=== PATIENT | female | born 1970 | race Caucasian/White ===

== ENCOUNTER → 2017-11-17 15:39 | Outpatient (CLI) | payer OTHER, SELFPAY ==
[2017-11-17 17:47] LABS: AST(SGOT) 9 U/L (15-37); Alanine Aminotransfer ALT/SGPT 20 U/L (13-56); Albumin, Serum 3.4 g/dL (3.2-5.0); Alkaline Phosphatase 76 U/L (45-117); Bilirubin, Direct 0.09 mg/dL (0.00-0.30); Globulin 4.1 g/dL (2.2-4.2); Lipase 128 U/L (73-393); Protein, Total 7.5 g/dL (6.4-8.2)
== END ==
PROVIDERS: Visit Provider Family Medicine
DX: R10.11 Right upper quadrant pain (principal); R11.2 Nausea with vomiting, unspecified
CPT/HCPCS: 36415; 80076; 83690

== ENCOUNTER 2017-11-19 22:57 | Emergency (ER) | payer OTHER, SELFPAY ==
[2017-11-19 22:59] VITALS: BP 145/98; PULSE 90; RESP 16; TEMP 36.9; O2SAT 98; BMI 22.0
--- NOTE | 2017-11-19 23:29 | US_ITS ---
STUDY: ABDOMINAL ULTRASOUND - RIGHT UPPER QUADRANT REASON FOR VISIT: Female, 47 years old. Right upper quadrant pain. TECHNIQUE: Ultrasound evaluation of the right upper quadrant was performed with real-time and static soto-scale imaging. TECHNICAL QUALITY: Adequate. COMPARISON: None. FINDINGS: Liver: The liver measures 13.4 cm. There is normal echogenicity of the liver. The bile ducts are within normal limits. There is hepatic color flow. The direction of portal flow is hepatopetal. There is no demonstrated mass lesion. Gallbladder: Normal distended gallbladder. The gallbladder wall measures 3 mm. There is a negative sonographic Richardson's sign. There is no pericholecystic fluid. There are multiple gallstones, the largest is in the region of the neck of the gallbladder measuring about 1.5 cm. Common Bile Duct (C.B.D.): The common bile duct measures 6 mm. Pancreas: Normal size of the head, body and tail of the pancreas. There is normal echogenicity of the pancreas. There is no demonstrated pancreatic mass or cyst. Right Kidney: Normal size of the right kidney. The right kidney measures 10 x 5 x 4.3 cm. Normal renal cortex. The right cortex measures 1.1 cm. There is no demonstrated renal mass or cyst. There is no right hydronephrosis. US/Gallbladder IMPRESSION: Multiple gallstones as described above. Electronically Signed: Sudhakar Lacy MD at 0:39 EST Tel , Service support ,
[2017-11-19] MEDS: Ketorolac 30 MG/ML Syringe IV (23:41)
[2017-11-19] MEDS: Ondansetron 4 MG/2 ML Vial IV (23:41)
[2017-11-19 23:46] LABS: Absolute Lymphocyte Count 2.22 X10^3/ul (0.83-4.51); Absolute Neutrophil Count 6.3 X10^3/uL (2.0-7.7); Basophil# 0.05 X10^3/uL; Basophil% 0.5 % (0-1); Eosinophil# 0.25 X10^3/uL; Eosinophils% 2.6 % (0-5); Hematocrit 40.2 % (37-47); Hemoglobin 13.8 g/dl (12.0-15.0); Lymphocyte # 2.22 X10^3/ul (4.0); Lymphocyte % 22.8 % (19-41); Mean Corp Hgb Conc 34.3 g/gl (32-36); Mean Corpuscular Hgb 31.6 pg (27.0-32.0); Mean Platelet Vol. 9.9 fl (6.2-12.0); Monocyte% 9.2 % (0-10); Neutrophil # 6.32 X10^3/uL (2.7-7.7); Neutrophil % 64.8 % (47-70); Platelet Count 239 K/mm3 (150-450); RBC Distribution Width CV 13.5 % (11.6-14.6); RBC Distribution Width SD 44.7 fl (35.1-43.9); Red Blood Count 4.37 M/mm3 (4.2-5.4); White Blood Count 9.8 K/mm3 (4.4-11.0)
[2017-11-19 23:47] LABS: POSITIVE COUNT NO; POSITIVE DIFFERENTIAL NO; POSITIVE MORPHOLOGY NO
[2017-11-19 23:57] LABS: ALB/GLOB Ratio 0.9 RATIO (0.9-2.4); AST(SGOT) 11 U/L (15-37); Alanine Aminotransfer ALT/SGPT 16 U/L (13-56); Albumin, Serum 3.4 g/dL (3.2-5.0); Alkaline Phosphatase 73 U/L (45-117); Anion Gap 9 (5-15); BUN 10 mg/dL (7-18); BUN/Creat Ratio 14.2 RATIO (10-20); Calcium,Total 8.8 mg/dL (8.5-10.1); Chloride 107 mmol/L (98-107); EST Glomerular Filtration Rate 94 mL/min (>60); Est Glom Filt Rate - Afr Amer 114 mL/min (>60); Estimated Creatinine Clearance 95.58 ml/min; Globulin 3.9 g/dL (2.2-4.2); Glucose 99 mg/dL (74-106); Lipase 141 U/L (73-393); Potassium 3.6 mmol/L (3.5-5.1); Protein, Total 7.3 g/dL (6.4-8.2); Sodium Level 144 mmol/L (136-145)
[2017-11-20 01:13] VITALS: BP 143/95; PULSE 83; RESP 16; O2SAT 100
--- NOTE | 2017-11-20 01:31 | ED.VISSUMM ---
- ER Visit Summary Date of Service: 11/20/17 Chief Complaint: Abdominal pain History of Present Illness: The patient is a 47 F with intermittent right upper quadrant pain for the past week that has been more severe in severity and more persistent tonight, 3 or 4 hours. Has been occurring 1-2 hours after meals, tonight she drank some milk to see if it would make it better and it actually became worse. She has had associated nausea and vomiting. No hematemesis, hematochezia, or melena. No fevers. Pain does radiate to her right mid back when it occurs. It is colicky. Saw her doctor and had some labs done and has some type of imaging test scheduled coming up. No prior abdominal surgeries. Physical Examination: No acute distress. Vitals are unremarkable. Tender with voluntary guarding in the right upper quadrant, no rebound tenderness, abdomen is soft with normal bowel sounds present and there is no other areas of tenderness. No CVA tenderness. Lungs are clear, heart is regular without tachycardia. Test Results: CBC, chemistries, liver enzymes, and lipase are all within normal limits. Ultrasound of the gallbladder shows gallstones with the largest being 1.5 cm in the neck of the gallbladder, no signs of cholecystitis or pericholecystic fluid. Common bile duct is 6 mm, within normal limits. Emergency Department Course and Treatment: Patient was treated with IV Toradol and Zofran. On reevaluation she is feeling much better her pain is resolved. Consistent with calculus biliary colic, she does not have acute cholecystitis and is in no need of urgency admission. We discussed a no fat diet, and surgical follow-up. We also discussed reasons to return to the ER, and given that she is a reasonable patient she was prescribed [place] and Zofran to use as needed at home in case she gets recurrent pain. All questions answered at bedside she is comfortable with this plan. Treatment Plan: Avoid fats in diet, surgical follow-up Disposition: Discharge home Impression: Acute biliary colic Cholelithiasis This note was generated with [employer] dictation software. It may contain incorrect words, spelling, and punctuation that were not noted in review of the chart prior to signing ED Disposition - Plan for ED Patient: Disposition: Home or Assisted Living Chief Complaint: Abd Pain Instructions: Treating Gallstones, Cholecystectomy, What are Gallstones? Prescriptions: Hydrocodone Bitart/Apap 5-325 [[place] 5/325] 1 - 2 tab PO Q4H PRN PRN 2 Days #12 tab PRN Reason: Pain Ondansetron [Zofran] 8 mg PO Q8H PRN PRN #12 tab PRN Reason: Nausea Referrals: Pio Bennett MD [Primary Care Provider] - Justin Jay MD [STAFF PHYSICIAN] - As soon as possible
[2017-11-20 01:38] VITALS: BP 146/96; PULSE 77; RESP 18; O2SAT 96
== END 2017-11-20 01:39 | disposition home or self-care (01) ==
PROVIDERS: Emergency Provider Emergency Medicine; Family Provider Family Medicine; PCP Family Medicine
DX: K80.50 Calculus of bile duct without cholangitis or cholecystitis without obstruction (principal)
CPT/HCPCS: 76705; 80053; 83690; 85025; 96374; 96375; 99283; A4216; J2405

== ENCOUNTER 2017-11-21 05:47 | Day surgery (SDC) | payer OTHER, SELFPAY ==
[2017-11-20 12:34] VITALS: BP 131/90
[2017-11-20 12:35] VITALS: BMI 22.0
[2017-11-21] VITALS (9 sets, daily range): BP systolic 131–161; BP diastolic 86–96; PULSE 62–86; RESP 10–20; TEMP 36.4–36.6; O2SAT 95–100; BMI 22.2
--- NOTE | 2017-11-21 05:59 | EKG12_ITS ---
Test Reason : PREOP Blood Pressure : / mmHG Vent. Rate : 084 BPM Atrial Rate : 084 BPM P-R Int : 146 ms QRS Dur : 096 ms QT Int : 388 ms P-R-T Axes : 066 067 067 degrees QTc Int : 458 ms Normal sinus rhythm Incomplete right bundle branch block Confirmed by JOSESITO MONTES DE OCA, CLAIRE ([id number]), graphic editor AMARI SANDHU ([id number]) on 11/24/2017 2:20:26 PM Referred By: Justin Jay Confirmed By:CLAIRE BELLAMY MD
--- NOTE | 2017-11-21 07:13 | RAD_ITS ---
STUDY: INTRAOPERATIVE CHOLANGIOGRAM. REASON FOR EXAM: Female, 47 years old. Laparoscopic cholecystectomy. FLUOROSCOPY TIME (if supplied): (12.9 seconds) minutes/seconds TECHNIQUE: An intraoperative cholangiogram was performed by the surgeon. Imaging was submitted. COMPARISON: None. FINDINGS: The common bile duct is not dilated. The visualized intrahepatic biliary ducts are unremarkable. No filling defect is seen. There is free flow of contrast into the duodenum. RAD/Cholangiogram/ O R,Initial IMPRESSION: Unremarkable intraoperative cholangiogram. Electronically Signed: Jg Traore MD at 11:28 EST Tel [phone], Service support ,
--- NOTE | 2017-11-21 07:30 | GALL_PTH ---
PATIENT: KODAK BUSH LOC: [facility] [place] U#:[id number] AGE/SX: 47/F ROOM: RE11/21/[address]: Dr. Justin Jay MD : 1970 BED: DIS: 11/21/2017 SPEC #: [id number] RECD: 11/21/17 10:11 STATUS: MICHAEL ЕКАТЕРИНА #: [id number] SARAH BETH: 11/21/17 07:[address]: Justin Jay DEPT: SURGICAL PATHOLOGY RECD BY: Patricio Brown ENTERED: 11/21/17 12:08 SP TYPE: MARCIA CHIN DR: Dr. Pio Bennett MD Tissues: Gallbladder, NOS Procedures: Surgery Specimen Level III HEADER OPERATION: Laparoscopic cholecystectomy with IOC PRE-OP DIAGNOSIS: Acute cholecystitis TISSUE SUBMITTED: Gallbladder MICROSCOPIC DIAGNOSIS Gallbladder, cholecystectomy: Acute and chronic cholecystitis and cholelithiasis. AM:todd 11/24/17 MICROSCOPIC DESCRIPTION Slides are reviewed. GROSS DESCRIPTION Received is one container labeled with the patient's name and designated gallbladder. The specimen consists of a gallbladder measuring 9 x 3 x 3 cm. The external surface is smooth and glistening. Focally, it is granular, hemorrhagic and contains cautery artifact. The lumen of the gallbladder contains greenish mucoid bile and a single dark rosario calculus measuring 1.5 x 1 x 1 cm. The mucosa is bile-stained and without any mass lesions. The gallbladder wall averages 0.3 cm in thickness and is free of mass lesions. Maintenance Assistant sections of the gallbladder and the cystic duct are submitted in one cassette. / AM:todd 11/21/17 TC:2 CPT: 67522
[2017-11-21] MEDS: Bupivacaine 0.25% 30 ML Vial (08:09)
--- NOTE | 2017-11-21 08:13 | PCM.DC.GB ---
Discharge Diet: Light diet - advance as tolerated Discharge Activity: Return to Normal Activity, May Not Drive - for 2-3 days or while taking narcotic pain medicataions., - - Do not drive, work heavy equipment or sign legal documents for 24 hours. May shower in (days): 1 - with the bandage in place. Lifting Restrictions: 20 lbs for 2 weeks Additional Activity Instructions:: Pain medication may cause nausea. You should typically eat light foods as you take your pain medications. Pain medication may also cause constipation. If this is a problem for you, please discuss with your doctor. Call your doctor if your incision/area has: Continuous Slow Oozing, Sudden Increased Bleeding, Increased Pain/ Swelling, Increased Redness, Foul Smelling Discharge, Fever of 101 or Higher Call your doctor if you observe: Fever of 101 or Higher Suture Line Care: Avoid Pulling/Pushing, Avoid Pinching/Bending Additional Dressing/Incision Instructions:: Leave operative bandaids on for 2 days. When you remove dressing, leave Steri-Strips on until your follow-up appointment, or until the Steri-Strips fall off on their own. Allergies/Adverse Reactions: Allergies Sulfa (Sulfonamide Antibiotics) Allergy (Verified 11/20/17 14:35) Other Medications to take at Discharge Estradiol 0.5 mg PO DAILY 11/19/17 Estrogens, Conjugated [Premarin] 1 dose VAGINAL DAILY 11/19/17 Multivitamins,Therapeutic [Multivitamin] 1 tab PO DAILY 11/19/17 Hydrocodone Bitart/Apap 5-325 [[place] 5/325] 1 - 2 tab PO Q4H PRN PRN 2 Days #12 tab 11/20/17 Ondansetron [Zofran] 8 mg PO Q8H PRN PRN #12 tab 11/20/17 amoxicillin 875 mg-potassium clavulanate 125 mg tablet 1 tab PO ONCE #1 tab 11/20/17 Oxycodone HCl/Acetaminophen [Percocet 5/325] 1 - 2 tablet PO Q4H PRN PRN 7 Days #30 tablet 11/21/17 The following prescriptions were given: Oxycodone HCl/Acetaminophen [Percocet 5/325] 1 - 2 tablet PO Q4H PRN PRN 7 Days #30 tablet PRN Reason: Pain Primary Care Physician: Pio Bennett MD [Primary Care Provider] - Please Follow Up With: Justin Jay MD When: call tomorrow to make 2 week follow up appt [phone]
--- NOTE | 2017-11-21 08:15 | OP.PCM_ITS ---
Problem List (1) Biliary colic Status: Acute Report of Operation Date of Procedure: 11/21/17 Pre-Operative Diagnosis: Biliary colic and cholelithiasis Post-Operative Diagnosis: Same Surgery/Procedure Performed:: Laparoscopic cholecystectomy with cholangiogram Specimen's removed: Gallbladder and contents Description of Procedure: After obtaining informed consent patient was brought back to the operating room. General anesthesia was induced. The abdomen was prepped and draped in usual sterile fashion. A small midline incision was made superior to the umbilicus and deepened to the level of fascia. The fascia was elevated and incised. Next the peritoneum was elevated and incised in the same fashion. Finger sweep was performed and the Blunt trocar was placed into the abdomen. The balloon was inflated. The abdomen was inflated to 15 mmHg. Next a camera was introduced into the abdomen and the abdomen was inspected. Next under direct visualization three 5-mm ports were placed one subxiphoid and 2 subcostal. Next the gallbladder was elevated and retracted toward the right shoulder. The peritoneum was stripped from the gallbladder. The infundibulum was located and retracted laterally. Next the triangle of Calot was dissected and the cystic duct and cystic artery were identified. Cholangiograms were performed. The Singleton catheter was used to clamp across the infundibulum and the needle was inserted into the gallbladder. Under fluoroscopy contrast was instilled into the gallbladder and the common duct, cystic duct as well as proximal hepatic ducts were identified. There was good filling of the duodenum. There were no filling defects noted in the common bile duct. The clamp was removed as well as the needle and the infundibulum was grasped once more. Three hemolock clips were placed across the cystic duct. The cystic duct was then divided leaving 2 clips on the stump. The cystic artery was clipped and divided in the same fashion. The hook cautery was then used to take the gallbladder off of the gallbladder bed. Hemostasis was obtained. Gallbladder fossa was irrigated and no active bleeding or bile leakage was noted. Next the camera switched to a 5 mm camera and introduced in the subxiphoid port. An Endopouch bag was placed through the umbilical port and the gallbladder was placed into it. The gallbladder was then removed through the umbilical incision. The camera was then reinserted through the umbilical port. The gallbladder fossa was inspected once more and noted to be hemostatic with no leaking bile. The abdomen was suctioned dry the 5 mm ports were removed under direct visualization. The umbilical port was then removed and the air was removed from the abdomen. Next using an 0 Vicryl suture the umbilical fascia was closed in a [id number] fashion. The umbilical port site was irrigated local anesthetic was administered to all the incisions. All the incisions were closed subcuticular 4-0 Monocryl sutures followed by Steri- Strips and dressings. The patient was awoken and taken to PACU in stable condition. - Admit VTE Documentation VTE Mechan Device Prophylaxis: SCD's
--- NOTE | 2017-11-21 10:03 | SUR.PHASEI ---
DR. PALUMBO NOTIFIED OF PT UMBILLICAL DRESSING SATURATED WITH RED DRAINAGE. HE ORDERED FOR DRESSING TO BE CHANGED.
[2017-11-21] MEDS: oxyCODONE 5 MG Tablet PO (10:15)
== END 2017-11-21 11:20 | disposition home or self-care (01) ==
LOC: SDC 05:48 → AC 05:49
PROVIDERS: Family Provider Family Medicine; PCP Family Medicine; Visit Provider Surgery
PROC: (CPT 47610; principal; 2017-11-21 07:10)
DX: K80.12 Calculus of gallbladder with acute and chronic cholecystitis without obstruction (principal); F17.200 Nicotine dependence, unspecified, uncomplicated; Z90.710 Acquired absence of both cervix and uterus; Z79.899 Other long term (current) drug therapy
CPT/HCPCS: 00790; 47563; 74300; 76000; 88304; 93005; J7120; J2405

== ENCOUNTER → 2018-07-23 11:04 | Outpatient (CLI) | payer OTHER, SELFPAY ==
[2018-07-23 13:20] LABS: Estradiol 24.2 pg/mL
== END ==
PROVIDERS: Visit Provider Obstetrics & Gynecology
DX: Z78.0 Asymptomatic menopausal state (principal)
CPT/HCPCS: 36415; 82670; 84144; 84403

== ENCOUNTER → 2019-07-19 11:09 | Outpatient (CLI) | payer OTHER, SELFPAY ==
[2017-11-21 06:08] VITALS: BMI 22.2
[2019-07-19 15:31] LABS: Vitamin D,25 Hydroxy 27.6 ng/mL (29.95-100.01)
[2019-07-19 15:32] LABS: PTHIN 21.9 pg/mL (18.4-80.1)
[2019-07-19 15:37] LABS: Anion Gap 7 (5-15); BUN 10 mg/dL (7-18); BUN/Creat Ratio 13.9 RATIO (10-20); Chloride 108 mmol/L (98-107); Creatinine, Serum 0.72 mg/dL (0.55-1.02); EST Glomerular Filtration Rate 92 mL/min (>60); Est Glom Filt Rate - Afr Amer 111 mL/min (>60); Glucose 82 mg/dL (74-106); Potassium 3.7 mmol/L (3.5-5.1); Sodium Level 142 mmol/L (136-145); T4 Free Direct 1.04 ng/dL (0.76-1.46); Thyroid Stim Hormone (TSH) 1.66 uIU/mL (0.358-3.74)
== END ==
PROVIDERS: Visit Provider Family Medicine
DX: F41.9 Anxiety disorder, unspecified (principal); M85.80 Other specified disorders of bone density and structure, unspecified site; M81.8 Other osteoporosis without current pathological fracture
CPT/HCPCS: 36415; 80048; 82306; 83970; 84439; 84443

== ENCOUNTER → 2019-08-16 11:28 | Outpatient (CLI) | payer OTHER, SELFPAY ==
[2017-11-21 06:08] VITALS: BMI 22.2
[2019-08-16 15:36] LABS: Anion Gap 7 (5-15); BUN 8 mg/dL (7-18); BUN/Creat Ratio 9.9 RATIO (10-20); Calcium,Total 9.1 mg/dL (8.5-10.1); Chloride 105 mmol/L (98-107); Creatinine, Serum 0.81 mg/dL (0.55-1.02); EST Glomerular Filtration Rate 80 mL/min (>60); Est Glom Filt Rate - Afr Amer 97 mL/min (>60); Glucose 111 mg/dL (74-106); Potassium 3.5 mmol/L (3.5-5.1); Sodium Level 140 mmol/L (136-145)
== END ==
LOC: LAB.FUTURE 02-17 00:16 → BFHLAB 04-10 11:38
PROVIDERS: Family Provider Family Medicine; PCP Family Medicine; Visit Provider Family Medicine
DX: R00.9 Unspecified abnormalities of heart beat (principal); R03.0 Elevated blood-pressure reading, without diagnosis of hypertension
CPT/HCPCS: 36415; 80048

== ENCOUNTER → 2020-02-22 09:10 | Outpatient (CLI) | payer OTHER, SELFPAY ==
[2017-11-21 06:08] VITALS: BMI 22.2
[2020-02-22 12:24] LABS: Anion Gap 8 (5-15); BUN 11 mg/dL (7-18); BUN/Creat Ratio 14.4 RATIO (10-20); Calcium,Total 9.6 mg/dL (8.5-10.1); Chloride 103 mmol/L (98-107); Cholesterol 199 mg/dL (200); Creatinine, Serum 0.76 mg/dL (0.55-1.02); EST Glomerular Filtration Rate 85 mL/min (>60); Est Glom Filt Rate - Afr Amer 103 mL/min (>60); Glucose 95 mg/dL (74-106); High Density Lipoprotein 59 mg/dL; Potassium 3.9 mmol/L (3.5-5.1); Sodium Level 138 mmol/L (136-145); Triglycerides 93 mg/dL; Very Low Density Lipoprotein 19 mg/dL (5-40); Vitamin D,25 Hydroxy 33.1 ng/mL
== END ==
PROVIDERS: PCP Family Medicine; Visit Provider Family Medicine
DX: I10 Essential (primary) hypertension (principal); E55.9 Vitamin D deficiency, unspecified; M85.80 Other specified disorders of bone density and structure, unspecified site
CPT/HCPCS: 36415; 80048; 80061; 82306

== ENCOUNTER → 2020-04-11 11:20 | Outpatient (CLI) | payer OTHER, SELFPAY ==
[2017-11-21 06:08] VITALS: BMI 22.2
[2020-04-12 07:20] LABS: SARS-COV-2 TOTAL ABS Nonreactive (Nonreactive)
== END ==
PROVIDERS: PCP Family Medicine; Referring Provider Family Medicine; Visit Provider Family Medicine
DX: Z20.828 Contact with and (suspected) exposure to other viral communicable diseases (principal)
CPT/HCPCS: 86769; G2023

== ENCOUNTER → 2020-10-20 13:19 | Outpatient (CLI) | payer BC, SELFPAY ==
[2017-11-21 06:08] VITALS: BMI 22.2
== END ==
PROVIDERS: PCP Family Medicine; Visit Provider Family Medicine
DX: R35.0 Frequency of micturition (principal); R30.0 Dysuria
CPT/HCPCS: 87077; 87086; 87088; 87186

== ENCOUNTER 2020-12-28 15:11 | Outpatient (RCR) | payer BC, SELFPAY ==
[2017-11-21 06:08] VITALS: BMI 22.2
[2020-12-28] MEDS: COVID-19 VACC, MRNA(PFIZER)/PF 30 MCG/0.3 ML SYRINGE IM (07:42)
[2021-01-18] MEDS: COVID-19 VACC, MRNA(PFIZER)/PF 30 MCG/0.3 ML SYRINGE IM (07:40)
== END 2020-12-28 23:59 ==
LOC: IMMUN 15:11
PROVIDERS: PCP Family Medicine; Visit Provider Family Medicine
DX: Z23 Encounter for immunization (principal)
CPT/HCPCS: 0001A; 0002A; 91300

== ENCOUNTER → 2021-01-22 08:27 | Outpatient (CLI) | payer BC, SELFPAY ==
[2017-11-21 06:08] VITALS: BMI 22.2
[2021-01-22 10:44] LABS: Anion Gap 4 (5-15); BUN 9 mg/dL (7-18); BUN/Creat Ratio 12.2 RATIO (10-20); Calcium,Total 9.2 mg/dL (8.5-10.1); Chloride 107 mmol/L (98-107); Creatinine, Serum 0.74 mg/dL (0.55-1.02); EST Glomerular Filtration Rate 88 mL/min (>60); Est Glom Filt Rate - Afr Amer 106 mL/min (>60); Glucose 97 mg/dL (74-106); Potassium 3.7 mmol/L (3.5-5.1); Sodium Level 138 mmol/L (136-145)
[2021-01-22 10:47] LABS: Vitamin D,25 Hydroxy 58.4 ng/mL
== END ==
PROVIDERS: PCP Family Medicine; Referring Provider Family Medicine; Visit Provider Family Medicine
DX: I10 Essential (primary) hypertension (principal); E55.9 Vitamin D deficiency, unspecified
CPT/HCPCS: 36415; 80048; 82306

== ENCOUNTER → 2022-04-02 | Outpatient (CLI) | payer BC, SELFPAY ==
[2022-04-02 12:33] LABS: Absolute Lymphocyte Count 2.54 X10^3/uL (0.83-4.51); Basophil# 0.05 X10^3/uL; Basophil% 0.8 % (0-1); Eosinophil# 0.32 X10^3/uL; Eosinophils% 4.9 % (0-5); Hematocrit 40.3 % (37-47); Hemoglobin 13.5 g/dL (12.0-15.0); Lymphocyte # 2.54 X10^3/ul (0.83-4.51); Mean Corp Hgb Conc 33.5 g/dL (32-36); Mean Corpuscular Hgb 31.8 pg (27.0-32.0); Mean Corpuscular Volume 94.8 fL (81-99); Mean Platelet Vol. 9.9 fl (6.2-12.0); Monocyte% 9.2 % (0-10); NRBC Flagged by Analyzer 0 % (0-5); Neutrophil % 45.9 % (47-70); Platelet Count 247 K/mm3 (150-450); RBC Distribution Width SD 45.1 fl (35.1-43.9); Red Blood Count 4.25 M/mm3 (4.2-5.4); White Blood Count 6.5 K/mm3 (4.4-11.0)
[2022-04-02 13:07] LABS: Anion Gap 6 (5-15); BUN 10 mg/dL (7-18); BUN/Creat Ratio 13.1 RATIO (10-20); Calcium,Total 9.1 mg/dL (8.5-10.1); Chloride 106 mmol/L (98-107); Creatinine, Serum 0.77 mg/dL (0.55-1.02); EST Glomerular Filtration Rate 84 mL/min (>60); Est Glom Filt Rate - Afr Amer 102 mL/min (>60); Glucose 137 mg/dL (74-106); Potassium 3.9 mmol/L (3.5-5.1); Sodium Level 139 mmol/L (136-145)
[2022-04-02 13:08] LABS: Vitamin D,25 Hydroxy 55.4 ng/mL
== END | disposition home or self-care (01) ==
LOC: LAB 11:48
PROVIDERS: PCP Family Medicine; Referring Provider Family Medicine; Visit Provider Family Medicine
DX: I10 Essential (primary) hypertension (principal); E55.9 Vitamin D deficiency, unspecified
CPT/HCPCS: 36415; 80048; 82306; 85025

== ENCOUNTER → 2023-03-03 | Outpatient (CLI) | payer BC, SELFPAY ==
[2023-03-03 08:25] LABS: Absolute Lymphocyte Count 2.79 X10^3/uL (0.83-4.51); Basophil# 0.06 X10^3/uL; Basophil% 0.8 % (0-1); Eosinophil# 0.27 X10^3/uL; Eosinophils% 3.4 % (0-5); Hematocrit 43.5 % (37-47); Hemoglobin 14.7 g/dL (12.0-15.0); Lymphocyte # 2.79 X10^3/ul (0.83-4.51); Lymphocyte % 35.1 % (19-41); Mean Corp Hgb Conc 33.8 g/dL (32-36); Mean Corpuscular Hgb 32.4 pg (27.0-32.0); Mean Corpuscular Volume 95.8 fL (81-99); Mean Platelet Vol. 10.5 fl (6.2-12.0); Monocyte# 0.82 X10^3/uL; Monocyte% 10.3 % (0-10); NRBC Flagged by Analyzer 0 % (0-5); Neutrophil # 3.99 X10^3/uL (2.7-7.7); Neutrophil % 50.1 % (47-70); Platelet Count 260 K/mm3 (150-450); RBC Distribution Width CV 13.2 % (11.6-14.6); RBC Distribution Width SD 47.2 fl (35.1-43.9); Red Blood Count 4.54 M/mm3 (4.2-5.4)
[2023-03-03 08:58] LABS: ALB/GLOB Ratio 0.9 RATIO (0.9-2.4); AST(SGOT) 19 U/L (15-37); Alanine Aminotransfer ALT/SGPT 20 U/L (13-56); Albumin, Serum 3.5 g/dL (3.2-5.0); Alkaline Phosphatase 100 U/L (45-117); Anion Gap 10 (5-15); BUN 12 mg/dL (7-18); BUN/Creat Ratio 15.8 RATIO (10-20); Calcium,Total 9.2 mg/dL (8.5-10.1); Chloride 106 mmol/L (98-107); Cholesterol 195 mg/dL (200); Creatinine, Serum 0.76 mg/dL (0.55-1.02); EST Glomerular Filtration Rate 85 mL/min (>60); Est Glom Filt Rate - Afr Amer 103 mL/min (>60); Globulin 3.8 g/dL (2.2-4.2); Glucose 89 mg/dL (74-106); High Density Lipoprotein 59 mg/dL; Potassium 3.8 mmol/L (3.5-5.1); Protein, Total 7.3 g/dL (6.4-8.2); Sodium Level 143 mmol/L (136-145); Triglycerides 63 mg/dL; Very Low Density Lipoprotein 13 mg/dL (5-40)
[2023-03-03 09:00] LABS: Vitamin D,25 Hydroxy 66.7 ng/mL
== END | disposition home or self-care (01) ==
LOC: LAB 06:13
PROVIDERS: PCP Nurse Practitioner Family; Referring Provider Nurse Practitioner Family; Visit Provider Nurse Practitioner Family
DX: Z00.00 Encounter for general adult medical examination without abnormal findings (principal); I10 Essential (primary) hypertension; E55.9 Vitamin D deficiency, unspecified
CPT/HCPCS: 36415; 80053; 80061; 82306; 85025

== ENCOUNTER → 2024-03-11 | Outpatient (CLI) | payer BC, SELFPAY ==
[2024-03-11 06:54] LABS: Absolute Neutrophil Count 4.4 X10^3/uL (2.0-7.7); Basophil# 0.07 X10^3/uL; Basophil% 0.9 % (0-1); Eosinophil# 0.44 X10^3/uL; Eosinophils% 5.5 % (0-5); Hematocrit 45.8 % (37-47); Hemoglobin 14.9 g/dL (12.0-15.0); Lymphocyte % 28.8 % (19-41); Mean Corp Hgb Conc 32.5 g/dL (32-36); Mean Corpuscular Hgb 31.5 pg (27.0-32.0); Mean Corpuscular Volume 96.8 fL (81-99); Mean Platelet Vol. 10.2 fl (6.2-12.0); Monocyte# 0.81 X10^3/uL; Monocyte% 10.2 % (0-10); NRBC Flagged by Analyzer 0 % (0-5); Neutrophil # 4.35 X10^3/uL (2.7-7.7); Neutrophil % 54.5 % (47-70); Platelet Count 285 K/mm3 (150-450); RBC Distribution Width CV 12.9 % (11.6-14.6); RBC Distribution Width SD 46.5 fl (35.1-43.9); Red Blood Count 4.73 M/mm3 (4.2-5.4)
[2024-03-11 07:42] LABS: ALB/GLOB Ratio 0.9 RATIO (0.9-2.4); AST(SGOT) 17 U/L (15-37); Alanine Aminotransfer ALT/SGPT 21 U/L (13-56); Albumin, Serum 3.6 g/dL (3.2-5.0); Alkaline Phosphatase 99 U/L (45-117); Anion Gap 5 (5-15); BUN 9 mg/dL (7-18); BUN/Creat Ratio 11.4 RATIO (10-20); Calcium,Total 9.3 mg/dL (8.5-10.1); Chloride 108 mmol/L (98-107); Cholesterol 180 mg/dL (200); Creatinine, Serum 0.79 mg/dL (0.55-1.02); EST Glomerular Filtration Rate 81 mL/min (>60); Est Glom Filt Rate - Afr Amer 98 mL/min (>60); Globulin 3.8 g/dL (2.2-4.2); Glucose 104 mg/dL (74-106); High Density Lipoprotein 49 mg/dL; Potassium 4.3 mmol/L (3.5-5.1); Protein, Total 7.4 g/dL (6.4-8.2); Sodium Level 139 mmol/L (136-145); Triglycerides 120 mg/dL; Very Low Density Lipoprotein 24 mg/dL (5-40)
== END | disposition home or self-care (01) ==
LOC: LAB 06:04
PROVIDERS: PCP Nurse Practitioner Family; Referring Provider Nurse Practitioner Family; Visit Provider Nurse Practitioner Family
DX: Z00.01 Encounter for general adult medical examination with abnormal findings (principal); I10 Essential (primary) hypertension; E55.9 Vitamin D deficiency, unspecified
CPT/HCPCS: 36415; 80053; 80061; 82306; 85025

== ENCOUNTER → 2025-03-19 | Outpatient (CLI) | payer BC, SELFPAY ==
--- OUTSIDE RECORDS SUMMARY | 2025-03-19 07:09 | XMS RPT_ITS | CCD ---
Author Organization [facility] Care Team Providers Care [employer] Room Service Supervisor Name Role Phone Prashant Krishnan Unavailable Unavailable [place], [place] Primary Care Unavailable [place], [place] Referring Unavailable [place], [place] Attending Unavailable [place], [place] Primary Care Unavailable Ld SECURITY FLEX UTILITY OFFICER, Kristina Attending Unavailable [place], [place] Primary Care Unavailable Ld SECURITY FLEX UTILITY OFFICER, Kristina Referring Unavailable Ld SECURITY FLEX UTILITY OFFICER, Kristina Attending Unavailable Allergies Allergy Classification Reported Allergen(s) Allergy Type Date of Onset Reaction(s) Facility (1 source) Sulfonamides (Antibiotic) Allergy to substance 8 Other [facility] (1 source) Sulfonamides (Antibiotic) Drug allergy (disorder) 8 [facility] Repository Medications Current Medications Medication Drug Class(es) Dates Sig (Normalized) Sig (Original) acetaminophen 325 mg / HYDROcodone bitartrate 5 mg oral tablet (1 source) Opioid Agonist Start: 11-20-2017 take 1 tablet by mouth every four hours as needed Hydrocodone-Acetam inophen Active 1 - 2 TABLET PO EVERY 4 HOURS NEEDED 12 2 November 20, 2017 1:00am amoxicillin 875 mg / clavulanate 125 mg oral tablet (1 source) Penicillin-class Antibacterial Start: 11-20-2017 take 1 tablet by mouth once in the evening Amoxicillin-Pot Clavulanate (Augmentin) 875-125 mg tablet Active 1 TABLET PO ONCE 1 November 20, 2017 1:00am take at 6 pm estradiol 0.5 mg oral tablet (1 source) Estrogen Start: 11-19-2017 take 0.5 mg by mouth once daily Estradiol Active 0.5 MG PO DAILY November 19, 2017 1:00am estrogens, conjugated (intermediate) 0.625 mg/ml vaginal cream (1 source) Estrogen Start: 11-19-2017 Conjugated Estrogens Active 1 DOSE VAGINAL DAILY November 19, 2017 1:00am Multivitamin With Folic Acid (1 source) Start: 11-19-2017 take 1 tablet by mouth once daily Multivitamin With Folic Acid Active 1 TABLET PO DAILY November 19, 2017 1:00am Completed/Discontinued Medications Medication Drug Class(es) Dates Sig (Normalized) Sig (Original) acetaminophen 325 mg / oxyCODONE hydrochloride 5 mg oral tablet (1 source) Opioid Agonist Start: 11-21-2017 End: 12-08-2017 take 1 tablet by mouth every four hours as needed Oxycodone-Acetamin ophen Discontinued 1 - 2 TABLET PO EVERY 4 HOURS NEEDED 11 05November 21, 2017 1:00am December 08, 2017 9:24am ondansetron 8 mg oral tablet (1 source) Serotonin-3 Receptor Antagonist Start: 11-20-2017 End: 12-08-2017 take 8 mg by mouth every eight hours as needed Ondansetron Hcl Discontinued 8 MG PO EVERY 8 HOURS NEEDED November 20, 2017 1:00am December 08, 2017 9:24am Problems Problem Classification Problem Date Documented Date Episodic/Chronic Biliary tract disease (1 source) Biliary colic; Translations: [Calculus of bile duct without cholangitis or cholecystitis without obstruction] 11-21-2017 Episodic Substance-related disorders (1 source) Nicotine dependence, cigarettes, uncomplicated; Translations: [Nicotine dependence, cigarettes, uncomplicated] Onset: 2024 Chronic Results Test Name Value Interpretation Reference Range Facility CBC W/Diff, Automatedon 02-12 Absolute Lymph 2.30 X10 3/uL Normal 0.83-4.51 [facility] Comment on above: Performed By: #### L 500.4100, L500.4050, L100.0100, [id number] #### [facility] [address] [place], [address] Absolute Neut 4.4 X10 3/uL Normal 2.0-7.7 [facility] Comment on above: Performed By: #### L 500.4100, [id number], L100.0100, [id number] #### [facility] [address] [place], [address] Basophils/100 WBC (Bld) 0.9 % Normal 0-1 [facility] Comment on above: Performed By: #### L 500.4100, [id number], L100.0100, [id number] #### [facility] [address] [place], [address] Eosinophils/100 WBC (Bld) 5.5 % High 0-5 [facility] Comment on above: Performed By: #### L 500.4100, [id number], L100.0100, [id number] #### [facility] [address] [place], [address] Erythrocyte distribution width (RBC) [Ratio] 12.9 % Normal 11.6-14.6 [facility] Comment on above: Performed By: #### L 500.4100, [id number], L100.0100, [id number] #### [facility] [address] [place], [address] Hematocrit (Bld) [Volume fraction] 45.8 % Normal 37-47 [facility] Comment on above: Performed By: #### L 500.4100, [id number], L100.0100, [id number] #### [facility] [address] [place], [address] Hemoglobin (Bld) [Mass/Vol] 14.9 g/dL Normal 12.0-15.0 [facility] Comment on above: Performed By: #### L 500.4100, [id number], L100.0100, [id number] #### [facility] [address] [place], [address] IG% 0.100 Normal 0.0-0.9 [facility] Comment on above: Result Comment: IG% - Immature Granulocytes (promyelocytes, myelocytes and metamyelocytes) > 1% indicates that a LEFT SHIFT is Present. Performed By: #### L 500.4100, L500.4050, L100.0100, [id number] #### [facility] [address] [place], [address] Lymphocytes/100 WBC (Bld) 28.8 % Normal 19-41 [facility] Comment on above: Performed By: #### L 500.4100, [id number], L100.0100, [id number] #### [facility] [address] [place], [address] MCH (RBC) [Entitic mass] 31.5 pg Normal 27.0-32.0 [facility] Comment on above: Performed By: #### L 500.4100, [id number], L100.0100, [id number] #### [facility] [address] [place], [address] MCHC (RBC) [Mass/Vol] 32.5 g/dL Normal 32-36 [facility] Comment on above: Performed By: #### L 500.4100, [id number], L100.0100, [id number] #### [facility] [address] [place], [address] MCV (RBC) [Entitic vol] 96.8 fL Normal 81-99 [facility] Comment on above: Performed By: #### L 500.4100, [id number], L100.0100, [id number] #### [facility] [address] [place], [address] Monocytes/100 WBC (Bld) 10.2 % High 0-10 [facility] Comment on above: Performed By: #### L 500.4100, [id number], L100.0100, [id number] #### [facility] [address] [place], [address] Neutrophils/100 WBC (Bld) 54.5 % Normal 47-70 [facility] Comment on above: Performed By: #### L 500.4100, [id number], L100.0100, [id number] #### [facility] [address] [place], [address] Nucleated RBC (Bld) [#/Vol] 0 10*3/uL Normal 0-5 [facility] Comment on above: Performed By: #### L 500.4100, [id number], L100.0100, [id number] #### [facility] [address] [place], [address] Platelet mean volume (Bld) [Entitic vol] 10.2 fL Normal 6.2-12.0 [facility] Comment on above: Performed By: #### L 500.4100, [id number], L100.0100, [id number] #### [facility] [address] [place], [address] Platelets (Bld) [#/Vol] 285 10*3/uL Normal 150-450 [facility] Comment on above: Performed By: #### L 500.4100, [id number], L100.0100, [id number] #### [facility] [address] [place], [address] RBC (Bld) [#/Vol] 4.73 10*6/uL Normal 4.2-5.4 [facility] Comment on above: Performed By: #### L 500.4100, [id number], L100.0100, [id number] #### [facility] [address] [place], [address] RDW SD 46.5 fl High 35.1-43.9 [facility] Comment on above: Performed By: #### L 500.4100, [id number], L100.0100, [id number] #### [facility] [address] [place], [address] WBC (Bld) [#/Vol] 8.0 10*3/uL Normal 4.4-11.0 [facility] Comment on above: Performed By: #### L 500.4100, [id number], L100.0100, [id number] #### [facility] [address] [place], [address] Comprehensive Metabolic Prof ilon 03-11-2024 Albumin [Mass/Vol] 3.6 g/dL Normal 3.2-5.0 [facility] Comment on above: Order Comment: CBCD Performed By: #### L 500.4100, [id number], L100.0100, [id number] #### [facility] [address] [place], [address] Albumin/Globulin [Mass ratio] 0.9 {ratio} Normal 0.9-2.4 [facility] Comment on above: Order Comment: CBCD Performed By: #### L 500.4100, [id number], L100.0100, [id number] #### [facility] [address] [place], [address] ALK P 99 U/L Normal 45-117 [facility] Comment on above: Order Comment: CBCD Performed By: #### L 500.4100, [id number], L100.0100, [id number] #### [facility] [address] [place], [address] ALT [Catalytic activity/Vol] 21 U/L Normal 13-56 [facility] Comment on above: Order Comment: CBCD Performed By: #### L 500.4100, [id number], L100.0100, [id number] #### [facility] [address] [place], [address] AST [Catalytic activity/Vol] 17 U/L Normal 15-37 [facility] Comment on above: Order Comment: CBCD Performed By: #### L 500.4100, [id number], L100.0100, [id number] #### [facility] [address] [place], [address] Bilirubin [Mass/Vol] 0.40 mg/dL Normal 0.20-1.00 [facility] Comment on above: Order Comment: CBCD Result Comment: For patients on eltrombopag therapy, use of Dimension [place] TBIL is not recommended. Performed By: #### L 500.4100, [id number], L100.0100, [id number] #### [facility] [address] [place], [address] BUN/CRE 11.4 RATIO Normal 10-20 [facility] Comment on above: Order Comment: CBCD Performed By: #### L 500.4100, [id number], L100.0100, [id number] #### [facility] [address] [place], [address] CA,Total 9.3 mg/dL Normal 8.5-10.1 [facility] Comment on above: Order Comment: CBCD Performed By: #### L 500.4100, [id number], L100.0100, [id number] #### [facility] [address] [place], [address] Chloride [Moles/Vol] 108 mmol/L High 98-107 [facility] Comment on above: Order Comment: CBCD Performed By: #### L 500.4100, [id number], L100.0100, [id number] #### [facility] [address] [place], [address] CO2 [Moles/Vol] 26.0 mmol/L Normal 21.0-32.0 [facility] Comment on above: Order Comment: CBCD Performed By: #### L 500.4100, [id number], L100.0100, [id number] #### [facility] [address] [place], [address] Creatinine [Mass/Vol] 0.79 mg/dL Normal 0.55-1.02 [facility] Comment on above: Order Comment: CBCD Result Comment: The validity of the calculated GFR GFRAA in patients over 70 years has not been determined. Clinical correlation is essential. Performed By: #### L 500.4100, L500.4050, L100.0100, [id number] #### [facility] [address] [place], [address] EST GFR - AA 98 mL/min Normal >60 [facility] Comment on above: Order Comment: CBCD Result Comment: Afri can Palestinian GFR Calc Performed By: #### L 500.4100, [id number], L100.0100, [id number] #### [facility] [address] [place], [address] GAP 5 Normal 5-15 [facility] Comment on above: Order Comment: CBCD Performed By: #### L 500.4100, [id number], L100.0100, [id number] #### [facility] [address] [place], [address] GFR/1.73 sq M.predicted among non-blacks MDRD (S/P/Bld) [Vol rate/Area] 81 mL/min/{1.73_m2} Normal >60 [facility] Comment on above: Order Comment: CBCD Result Comment: Non- GFR Calc Performed By: #### L 500.4100, [id number], L100.0100, [id number] #### [facility] [address] [place], [address] Globulin (S) [Mass/Vol] 3.8 g/dL Normal 2.2-4.2 [facility] Comment on above: Order Comment: CBCD Performed By: #### L 500.4100, [id number], L100.0100, [id number] #### [facility] [address] [place], [address] Glucose [Mass/Vol] 104 mg/dL Normal 74-106 [facility] Comment on above: Order Comment: CBCD Result Comment: Fast ing Glucose result from 100 to 125 mg/dL suggests IMPAIRED HOMEOSTASIS per A.D.A. criteria. Performed By: #### L 500.4100, L500.4050, L100.0100, [id number] #### [facility] [address] [place], [address] Potassium [Moles/Vol] 4.3 mmol/L Normal 3.5-5.1 [facility] Comment on above: Order Comment: CBCD Performed By: #### L 500.4100, [id number], L100.0100, [id number] #### [facility] [address] [place], [address] Sodium [Moles/Vol] 139 mmol/L Normal 136-145 [facility] Comment on above: Order Comment: CBCD Performed By: #### L 500.4100, [id number], L100.0100, [id number] #### [facility] [address] [place], [address] T PROT 7.4 g/dL Normal 6.4-8.2 [facility] Comment on above: Order Comment: CBCD Performed By: #### L 500.4100, [id number], L100.0100, [id number] #### [facility] [address] [place], [address] Urea nitrogen [Mass/Vol] 9 mg/dL Normal 7-18 [facility] Comment on above: Order Comment: CBCD Performed By: #### L 500.4100, [id number], L100.0100, [id number] #### [facility] [address] [place], [address] Lipid Profileon 03-11-2024 Cholesterol [Mass/Vol] 180 mg/dL Normal 200 [facility] Comment on above: Order Comment: CBCD Result Comment: <200 mg/dL Desirable 200-240 mg/dL Borderline >240 mg/dL High Risk Performed By: #### L 500.4100, L500.4050, L100.0100, [id number] #### [facility] [address] [place], [address] Cholesterol in HDL [Mass/Vol] 49 mg/dL Normal [facility] Comment on above: Order Comment: CBCD Result Comment: The drugs N-Acetylcysteine and Metamizole may falsely depress this assay. Reference Range HDL <40 mg/dL Low HDL Cholesterol HDL >or= 60 mg/dL High HDL Cholesterol Performed By: #### L 500.4100, L500.4050, L100.0100, [id number] #### [facility] [address] [place], [address] Cholesterol in LDL [Mass/Vol] 107 mg/dL Normal 0-130 [facility] Comment on above: Order Comment: CBCD Performed By: #### L 500.4100, L500.4050, L100.0100, [id number] #### [facility] [address] [place], [address] Cholesterol in VLDL [Mass/Vol] 24 mg/dL Normal 5-40 [facility] Comment on above: Order Comment: CBCD Performed By: #### L 500.4100, L500.4050, L100.0100, [id number] #### [facility] [address] [place], [address] Triglyceride [Mass/Vol] 120 mg/dL Normal [facility] Comment on above: Order Comment: CBCD Result Comment: The drugs N-Acetylcysteine and Metamizole may falsely depress this assay. Serum Triglycerides Reference Interval Normal <150 mg/dL Borderline high 150 - 199 mg/dL High 200 - 499 mg/dL Very High > or = 500 mg/dL Performed By: #### L 500.4100, L500.4050, L100.0100, [id number] #### [facility] [address] [place], [address] Vitamin D,25 Hydroxyon 03-11 Vitamin D 25-OH 66.0 ng/mL Normal [facility] Comment on above: Result Comment: Polly min D 25(OH) Status Range Deficiency <20 ng/mL (50nmol/L) Insufficiency 20 - 30 ng/mL (50 - 75 nmol/L) Sufficiency 30 - 100 ng/mL (75 - 250 nmol/L) Toxicity >100 ng/mL (>250 nmol/L) Performed By: #### L 500.4100, L500.4050, L100.0100, [id number] #### [facility] [address] [facility] [place], [address] Absolute lymphocyte countOrd ered By: Virginia Hermosillo on 03-03-2023 Lymphocytes Auto (Unsp spec) [#/Vol] 2.79 10*3/uL 0.83-4.51 [facility] Basophil percentageOrdered B y: Virginia Hermosillo on 03-03-2023 Basophils/100 WBC (Bld) 0.8 % 0-1 [facility] Bilirubin [Mass/Vol] 0.40 mg/dL 0.20-1.00 [facility] Comment on above: For patients on eltr ombopag therapy, use of Dimension [place] TBIL is not recommended. Chloride [Moles/Vol] 106 mmol/L 98-107 [facility] Cholesterol [Mass/Vol] 195 mg/dL <200 [facility] Comment on above: <200 mg/dL Desirable 200-240 mg/dL Borderline >240 mg/dL High Risk Eosinophils/100 WBC (Bld) 3.4 % 0-5 [facility] Glucose [Mass/Vol] 89 mg/dL 74-106 [facility] Neutrophils (Bld) [#/Vol] 4.0 10*3/uL 2.0-7.7 [facility] Neutrophils/100 WBC (Bld) 50.1 % 47-70 [facility] Potassium [Moles/Vol] 3.8 mmol/L 3.5-5.1 [facility] Protein [Mass/Vol] 7.3 g/dL 6.4-8.2 [facility] Sodium [Moles/Vol] 143 mmol/L 136-145 [facility] Triglyceride [Mass/Vol] 63 mg/dL <199 [facility] Comment on above: The drugs N-Acetylcy steine and Metamizole may falsely depress this assay.Serum Triglycerides Reference Interval Normal <150 mg/dL Borderline high 150 - 199 mg/dL High 200 - 499 mg/dL Very High > or = 500 mg/dL WBC (Bld) [#/Vol] 8.0 10*3/uL 4.4-11.0 [facility] Blood erythrocytes count (nu mber/volume)Ordered By: Virginia Hermosillo on 03-03-2023 RBC (Bld) [#/Vol] 4.54 10*6/uL 4.2-5.4 [facility] Blood hemoglobin measurement (mass/volume)Ordered By: Virginia Hermosillo on 03-03-2023 Hemoglobin (Bld) [Mass/Vol] 14.7 g/dL 12.0-15.0 [facility] Blood lymphocytes/100 leukoc ytesOrdered By: Virginia Hermosillo on 03-03-2023 Lymphocytes/100 WBC (Bld) 35.1 % 19-41 [facility] Blood monocytes/100 leukocyt esOrdered By: Virginia Hermosillo on 03-03-2023 Monocytes/100 WBC (Bld) 10.3 % 0-10 [facility] Blood platelet mean volumeOr dered By: Virginia Hermosillo on 03-03-2023 Platelet mean volume (Bld) [Entitic vol] 10.5 fL 6.2-12.0 [facility] Determination of erythrocyte mean corpuscular volume (MCV)Ordered By: Virginia Hermosillo on 03-03-2023 MCV (RBC) [Entitic vol] 95.8 fL 81-99 [facility] Hematocrit Auto (Bld) [Volum e fraction]Ordered By: Virginia Hermosillo on 03-03-2023 Hematocrit (Bld) [Volume fraction] 43.5 % 37-47 [facility] - Chemistry and C hemistry - challengeOrdered By: Virginia Hermosillo on 03-03-2023 ALP [Catalytic activity/Vol] 100 U/L 45-117 [facility] ALT [Catalytic activity/Vol] 20 U/L 13-56 [facility] CO2 [Moles/Vol] 27.0 mmol/L 21.0-32.0 [facility] Globulin (S) [Mass/Vol] 3.8 g/dL 2.2-4.2 [facility] Urea nitrogen/Creatinine [Mass ratio] 15.8 mg/mg 10-20 [facility] - Hematology and Cell countsOrdered By: Virginia Hermosillo on 03-03-2023 Erythrocyte distribution width (RBC) [Entitic vol] 47.2 fL 35.1-43.9 [facility] Erythrocyte distribution width (RBC) [Ratio] 13.2 % 11.6-14.6 [facility] Immature granulocytes/100 WBC (Bld) 0.300 % 0.0-0.9 [facility] Comment on above: IG% - Immature Granu locytes (promyelocytes, myelocytes and metamyelocytes) > 1% indicates that a LEFT SHIFT is Present. MCH (RBC) [Entitic mass] 32.4 pg 27.0-32.0 [facility] Nucleated RBC/100 WBC (Bld) [Ratio] 0 % 0-5 [facility] MCHC Auto (RBC) [Mass/Vol]Or dered By: Virginia Hermosillo on 03-03-2023 MCHC (RBC) [Mass/Vol] 33.8 g/dL 32-36 [facility] No Panel InformationOrdered By: Virginia Hermosillo on 03-03-2023 Estimated GFR (MDRD) Amer 103 mL/min >60 [facility] Comment on above: GFR Calc Estimated GFR (MDRD) Non-Af Amer 85 mL/min >60 [facility] Comment on above: Non- GFR Calc Vitamin D 25-Hydroxy 66.7 ng/mL [facility] Comment on above: Vitamin D 25(OH) Sta tus Range Deficiency <20 ng/mL (50nmol/L) Insufficiency 20 - 30 ng/mL (50 - 75 nmol/L) Sufficiency 30 - 100 ng/mL (75 - 250 nmol/L) Toxicity >100 ng/mL (>250 nmol/L) Platelets bldOrdered By: Marbella Hermosillo on 03-03-2023 Platelets (Bld) [#/Vol] 260 10*3/uL 150-450 [facility] Serum or plasma albumin susan urement (mass/volume)Ordered By: Virginia Hermosillo on 03-03-2023 Albumin [Mass/Vol] 3.5 g/dL 3.2-5.0 [facility] Serum or plasma albumin/glob ulin mass ratioOrdered By: Virginia Hermosillo on 03-03-2023 Albumin/Globulin [Mass ratio] 0.9 {ratio} 0.9-2.4 [facility] Serum or plasma calcium susan urement (mass/volume)Ordered By: Virginia Hermosillo on 03-03-2023 Calcium [Mass/Vol] 9.2 mg/dL 8.5-10.1 [facility] Serum or plasma cholesterol in HDL measurement (mass/volume)Ordered By: Virginia Hermosillo on 03-03-2023 Cholesterol in HDL [Mass/Vol] 59 mg/dL >40 [facility] Comment on above: The drugs N-Acetylcy steine and Metamizole may falsely depress this assay. Reference Range HDL <40 mg/dL Low HDL Cholesterol HDL >or= 60 mg/dL High HDL Cholesterol Serum or plasma cholesterol in VLDL measurement (mass/volume)Ordered By: Virginia Hermosillo on 03-03-2023 Cholesterol in VLDL [Mass/Vol] 13 mg/dL 5-40 [facility] Serum or plasma creatinine m easurement (mass/volume)Ordered By: Virginia Hermosillo on 03-03-2023 Creatinine [Mass/Vol] 0.76 mg/dL 0.55-1.02 [facility] Comment on above: The validity of the calculated GFR & GFRAA in patients over 70 years has not been determined. Clinical correlation is essential. Serum or plasma low density lipoprotein (LDL) cholesterol measurement (mass/volume)Ordered By: Virginia Hermosillo on 03-03-2023 Cholesterol in LDL [Mass/Vol] 123 mg/dL 0-130 [facility] Serum or plasma urea nitroge n measurement (mass/volume)Ordered By: Virginia Jeangar on 03-03-2023 Urea nitrogen [Mass/Vol] 12 mg/dL 7-18 [facility] Thin prep Papanicolaou smear with manual screeningOrdered By: Virginia Jeangar on 03-03-2023 Thin prep Papanicolaou smear with manual screening 19 U/L 15-37 [facility] Thin prep Papanicolaou smear with manual screening 10 5-15 [facility] PATIENT PHENOTYPEon 05-28-20 17 PATIENT PHENOTYPE Positive Normal [facility] [place] Comment on above: Result Comment: Radha ent types POSITIVE for A1 Lectin Performed By: #### P TPHN ####[id number] [place] [address] ABO/RH GROUP TESTon 05-26-20 17 ABO TYPE A Normal [facility] [place] Comment on above: Performed By: #### A CHICA ####[id number] [place] [address] RH TYPE Positive Normal [facility] [place] Comment on above: Performed By: #### A CHICA ####[id number] [place] [address] AUTOCROSSMATCH, FLOWon 05-26 AUTOCROSSMATCH, FLOW Canceled Normal [facility] Comment on above: Order Comment: TEST AUTOCROSSMATCH, FLOW WAS CANCELLED, 05/26/2017 15:47 ?WRONG VISIT USED.. Performed By: #### F LAUT ####[id number] [place] [address] HLA-A,B,C LRon 05-26-2017 HLA-A LOCUS LR TYPE SEE COMMENT Normal [facility] Comment on above: Result Comment: HLA- A LOCUS, LOW RESOLUTION TYPE SEE SEPARATE REPORT. Performed By: #### D N1LR ####[id number] [place] [address] HLA-B LOCUS LR TYPE SEE COMMENT Normal [facility] Comment on above: Result Comment: HLA- B LOCUS, LOW RESOLUTION TYPE SEE SEPARATE REPORT. Performed By: #### D N1LR ####[id number] [place] [address] HLA-C LOCUS LR TYPE SEE COMMENT Normal [facility] Comment on above: Result Comment: HLA- C LOCUS, LOW RESOLUTION TYPE SEE SEPARATE REPORT. Performed By: #### D N1LR ####[id number] [place] [address] HLA-A LOCUS LR TYPE Canceled Normal [facility] Comment on above: Order Comment: TEST HLA-A,B,C LR WAS CANCELLED, 05/26/2017 15:47 ?WRONG VISIT USED.. Performed By: #### D N1LR ####[id number] [place] [address] HLA-B LOCUS LR TYPE Canceled Normal [facility] Comment on above: Order Comment: TEST HLA-A,B,C LR WAS CANCELLED, 05/26/2017 15:47 ?WRONG VISIT USED.. Performed By: #### D N1LR ####[id number] [place] [address] HLA-C LOCUS LR TYPE Canceled Normal [facility] Comment on above: Order Comment: TEST HLA-A,B,C LR WAS CANCELLED, 05/26/2017 15:47 ?WRONG VISIT USED.. Performed By: #### D N1LR ####[id number] [place] [address] HLA-DPB1 HR TYPINGon 017 HLA-DPB1 HR TYPING SEE COMMENT Normal [facility] Comment on above: Result Comment: HLA- DPB1 HIGH RESOLUTION TYPING SEE SEPARATE REPORT. Performed By: #### D PBHR ####[id number] [place] [address] HLA-DQB1 HR TYPINGon 017 HLA-DQB1 HR TYPING SEE COMMENT Normal [facility] Comment on above: Result Comment: HLA- DQB1 HIGH RESOLUTION TYPING SEE SEPARATE REPORT. Performed By: #### D QBHR ####[id number] [place] [address] HLA-DRB1/3/4/5 AND DQB1 LR T YPINGon 05-26-2017 HLA-DRB1/3/4/5 & DQB1 LR TYPING SEE COMMENT Normal [facility] [place] Comment on above: Result Comment: HLA- DRB1/3/4/5 AND DQB1 LOW RESOLUTION TYPING SEE SEPARATE REPORT. Performed By: #### D N2LR ####[facility] [place] [address] HLA-DRB1/3/4/5 & DQB1 LR TYPING Canceled Normal [facility] [place] Comment on above: Order Comment: TEST HLA-DRB1/3/4/5 AND DQB1 LR TYPING WAS CANCELLED, 05/26/2017 15:47 ?WRONGVISIT USED.. Performed By: #### D N2LR ####[id number] [place] [address] Encounters Encounter Date Encounter Type Care Provider Facility Start: 08-17-2024 ambulatory [facility] Facility:[facility] Start: 03-30-2024 ambulatory [facility] Facility:[facility] Start: 03-18-2024 Encounter for genera l adult medical examination with abnormal findings [facility] Start: 03-11-2024 End: 03-11-2024 ambulatory [facility] Facility:[facility] Start: 03-03-2023 End: 03-03-2023 ambulatory [facility] Work Phone: Start: 03-03-2023 End: 03-03-2023 Patient encounter procedure [facility] Start: 05-26-2017 Ambulatory Prashant Q Eulogio Facili ty:[facility] Immunizations Immunization Date Immunization Notes Care Provider Fa cility 01-18-2021 Covid (Pfizer) [facility] 12-28-2020 Covid (Pfizer) [facility] Payers Date Payer Category Payer Self-pay [id number] 2024 Unknown [id number] Private Health Insurance [facility] [id number] Private Health Insurance [id number] Unknown [id number] Unknown [id number] Unknown [id number] Unknown [id number] Social History Date Type Detail Facility Start: 12-08-2017 Tobacco smoking stat [facility] Unknown if ever smoked [facility] Start: 1970 Sex Assigned At Female [facility] Evaluation note Note Date & Type Note Facility Evaluation note No assessment information availa ble [facility] Work Phone: Summary Purpose Family History No Family History Records Found Relationship Condition Age at Onset Recorded Date/T henrique mother Diabetes mellitus Unknown Cardiac disease Unknown Hypertension Unknown father Hypertension Unknown son Kidney disorder Unknown Advance Directives No Advanced Directives Records Found Advance Directive Response Recorded Date/ Time Advance Directives No November 20, 2017 12:14am Living Will No November 20 3:37pm Power of Plant Tender No November 20, 2017 3:37pm Chief Complaint and Reason for Visit Chief Complaint VIT D DEFICIENCY Additional Source Comments INFORMATION SOURCE (unrecogn ized section and content) DATE CREATED AUTHOR 04/08/2018 [facility] [place] DATE CREATED AUTHOR AUTHOR'S ORGANIZ ATION 08/07/2024 [facility] Care Teams (unrecognized sec tion and content) Team Status: Active Member Role Status Dates Dr. Pio Bennett MD Family Provider Active MINISTERIO Peters Primary Care Provider Active Team Status: Inactive Member Role Status Dates MINISTERIO Peters Primary Care Provide r, Attending Provider, Referring Provider Active Goals (unrecognized section and content) Goals may be documented in a n alternate section FOR RECORDS PERTAINING TO PATIENTS WHO ARE OR HAVE BEEN ENROLLED IN A CHEMICAL DEPENDENCY/SUBSTANCEABUSE PROGRAM, SOME INFORMATION MAY BE OMITTED. This clinical summary was aggregated from multiple sources. Caution should be exercised in using it in the provision of clinical care. This summary normalizes information from multiple sources, and as a consequence, information in this document may materially change the coding, format and clinical context of patient data. In addition, data may be omitted in some cases. CLINICAL DECISIONS SHOULD BE BASED ON THE PRIMARY CLINICAL RECORDS. [facility]. provides no warranty or guarantee of the accuracy or completeness of information in this document.
[2025-03-19 07:26] LABS: Absolute Lymphocyte Count 2.32 X10^3/uL (0.83-4.51); Absolute Neutrophil Count 3.1 X10^3/uL (2.0-7.7); Basophil# 0.09 X10^3/uL; Basophil% 1.4 % (0-1); Eosinophil# 0.34 X10^3/uL; Eosinophils% 5.2 % (0-5); Hematocrit 48.8 % (37-47); Hemoglobin 15.6 g/dL (12.0-15.0); Lymphocyte # 2.32 X10^3/ul (0.83-4.51); Lymphocyte % 35.4 % (19-41); Mean Corpuscular Hgb 32.2 pg (27.0-32.0); Mean Corpuscular Volume 100.8 fL (81-99); Mean Platelet Vol. 9.7 fl (6.2-12.0); Monocyte# 0.72 X10^3/uL; NRBC Flagged by Analyzer 0 % (0-5); Neutrophil # 3.07 X10^3/uL (2.7-7.7); Neutrophil % 46.7 % (47-70); Platelet Count 244 K/mm3 (150-450); RBC Distribution Width CV 12.9 % (11.6-14.6); RBC Distribution Width SD 48.4 fl (35.1-43.9); Red Blood Count 4.84 M/mm3 (4.2-5.4); White Blood Count 6.6 K/mm3 (4.4-11.0)
[2025-03-19 08:08] LABS: ALB/GLOB Ratio 1.4 RATIO (0.9-2.4); AST(SGOT) 23 U/L (<=31); Alanine Aminotransfer ALT/SGPT 16 U/L (<=34); Albumin, Serum 4.2 g/dL (3.5-5.0); Alkaline Phosphatase 93 U/L (35-104); Anion Gap 11 (5-15); BUN 14 mg/dL (4-19); BUN/Creat Ratio 19.7 RATIO (10-20); Calcium,Total 9.5 mg/dL (7.6-11.0); Carbon Dioxide 23.9 mmol/L (21.0-32.0); Chloride 104 mmol/L (98-108); Cholesterol 206 mg/dL (<=200); Creatinine, Serum 0.72 mg/dL (0.70-1.20); EST Glomerular Filtration Rate 99 (>60); Glucose 99 mg/dL (70-99); High Density Lipoprotein 59 mg/dL; Low Density Lipoprotein Calc. 131 mg/dL; Potassium 4.4 mmol/L (3.3-5.1); Protein, Total 7.2 g/dL (5.9-8.4); Sodium Level 139 mmol/L (133-145); Total Bilirubin 0.49 mg/dL (0.00-1.30); Triglycerides 82 mg/dL; Very Low Density Lipoprotein 16 mg/dL (5-40); Vitamin B12 510 pg/mL (180-914); Vitamin D,25 Hydroxy 44.2 ng/mL (30-100); cholesterol:hdl ratio screen 3.52
== END | disposition home or self-care (01) ==
LOC: MTLAB 07:07 → LAB 07:07
PROVIDERS: PCP Nurse Practitioner Family; Referring Provider Nurse Practitioner Family; Visit Provider Nurse Practitioner Family
DX: Z00.01 Encounter for general adult medical examination with abnormal findings (principal); I10 Essential (primary) hypertension; E55.9 Vitamin D deficiency, unspecified
CPT/HCPCS: 36415; 80053; 80061; 82306; 82607; 85025